=== PATIENT | male | born 1975 | race Caucasian/White ===

== ENCOUNTER 2018-01-25 09:47 | Emergency (ER) | payer MEDICARE, MEDICAID ==
[~2018-01-25] VITALS: Ht 175.3 cm; Wt 88.6 kg
[~2018-01-25 09:47] MED LIST: DIVA-78 PO; QUET300T2 GT
[2018-01-25] MEDS ORDERED: HYPERTENSIVE MED PO (10:07)
[2018-01-25] MEDS ORDERED: CHLO10 PO (10:07)
[2018-01-25] MEDS ORDERED: CHOLESTEROL MED PO (10:07)
[2018-01-25] MEDS ORDERED: HYDROCODONE/ACETAMINOPHEN 5-325 MG TABLET PO ONE (11:30)
[2018-01-25] MEDS ORDERED: IBUPROFEN 600 MG TABLET PO ONE (11:30)
[2018-01-25 12:27] VITALS: BP 137/83
== END 2018-01-25 12:40 | disposition home or self-care (01) ==
LOC: EMS 09:48
DX: S52.352A Displaced comminuted fracture of shaft of radius, left arm, initial encounter for closed fracture (principal); F31.9 Bipolar disorder, unspecified; I10 Essential (primary) hypertension; F20.9 Schizophrenia, unspecified; E78.00 Pure hypercholesterolemia, unspecified; F17.210 Nicotine dependence, cigarettes, uncomplicated; F90.9 Attention-deficit hyperactivity disorder, unspecified type; Z98.890 Other specified postprocedural states; Z88.8 Allergy status to other drugs, medicaments and biological substances; Z79.899 Other long term (current) drug therapy; V98.8XXA Other specified transport accidents, initial encounter; Y93.55 Activity, bike riding; Y92.89 Other specified places as the place of occurrence of the external cause; Y99.8 Other external cause status
CPT/HCPCS: 99284; 99406